=== PATIENT | male | born 1960 | race Caucasian/White ===

== ENCOUNTER 2016-11-10 16:53 | Emergency (ER) | payer BC ==
[~2016-11-10] VITALS: Ht 175.3 cm; Wt 113.0 kg
[~2016-11-10 16:53] MED LIST changes: -CEPH500C PO; -CLIN150C2 PO; -HYDR-700 PO; -MTP25TSR PO; -SERT50TA PO; -SULF-221 PO; -[UNRECOGNIZED DRUG - CODE] SQ
--- OUTSIDE RECORDS SUMMARY | 2016-11-10 16:57 | XMS REPORT | Continuity of Care Document ---
Author Author [facility] Organization [facility] Address Unknown Phone Unavailable Care Team Providers Care Tier In Name Role Phone Jorge Peña MD PP [phone] Insurance Providers Payer Name Policy Number Subscriber Name Relationship [facility] [id number] Lele Brooks 18 Self / Same As Patient Advance Directives Directive Response Recorded Date Advanced Directives No 06/29/13 2:11pm Problems Medical Problem Onset Date Perirectal abscess 08/14/12 Diabetes mellitus 08/14/12 Social History History Response Recorded Date/Time Exposure to occupational hazards Y 7:44pm Allergies, Adverse Reactions, Alerts Allergen Type Severity Reaction Last Updated Penicillins Allergy 08/14/12 Medications Medication Dose Units Route Sig Qty Days Hydrocodone Bit/Acetaminophen (Lortab 5 Mg) 1 Tab PO Q 4H PRN 15 Gentamicin Sulfate (Garamycin) 1 Drop OS Q1H W/A 10 Insulin Lispro (Humalog) 100 Unit SQ TID Insulin Glargine,Hum.rec.anlog (Lantus) 100 Unit SQ HS Loratadine 10 Mg PO DAILY Citalopram Hydrobromide (Celexa) 20 Mg PO DAILY Glimepiride (Amaryl) 2 Mg PO DAILY Metformin Hcl (Glucophage) 1000 Mg PO BID WITH MEALS Hydrocodone Bit/Acetaminophen (Hydrocodon-Acetaminophen 5-500) 1 Each PO DAILY Lisinopril (Zestril) 10 Mg PO DAILY Response Recorded Date/Time Status not known Unknown Results No Known Relevant Diagnostic Tests, Laboratory Data and/or Discharge Summary. Procedures Procedure Code Date INCISION OF RECTAL ABSCESS 34194 PERIRECTAL INCISION 48.81 08/14/12 Blood Culture 08/14/12 Anaerobic Culture 10/17/12 Encounters Encounter Location Date/Time Departed Emergency Room [facility] 06/29/13 2:10pm Discharged Inpatient [facility] 08/14/12 3:28pm
[2016-11-10 17:04] VITALS: BP 147/93
[2016-11-10] MEDS ORDERED: HYDR-700 PO (17:31)
[2016-11-10] MEDS ORDERED: CEPH500C PO (17:31)
[2016-11-15] MEDS ORDERED: SULF-221 PO (16:52)
[2016-11-16] MEDS ORDERED: [UNRECOGNIZED DRUG - CODE] SQ ×2 (09:35)
[2016-11-21] MEDS ORDERED: MTP25TSR PO (14:12)
[2016-11-21] MEDS ORDERED: CLIN150C2 PO (14:12)
[2016-11-21] MEDS ORDERED: SERT50TA PO (14:12)
[2017-01-10] MEDS ORDERED: [UNRECOGNIZED DRUG - CODE] SQ (10:24)
== END 2016-11-10 17:38 | disposition home or self-care (01) ==
LOC: ED 16:54
DX: L03.116 Cellulitis of left lower limb (principal); E11.621 Type 2 diabetes mellitus with foot ulcer; L97.429 Non-pressure chronic ulcer of left heel and midfoot with unspecified severity; Z79.4 Long term (current) use of insulin; L50.0 Allergic urticaria; R60.9 Edema, unspecified; F17.210 Nicotine dependence, cigarettes, uncomplicated
CPT/HCPCS: 99283

== ENCOUNTER → 2016-11-10 | Outpatient (CLI) | payer BC ==
[~2016-11-10] MED LIST: ASPI-894 PO; ATOR80TA PO; CEPH500C PO; CITA20TA12 PO; CLIN150C2 PO; DPAS20025 PO; GENT5DRO26 OS; GLMP2T PO; HYDR-3754 PO; HYDR-700 PO; HYDR1CAP2 PO; INSU100C7 SQ; LISI-595 PO; LORA10TA7 PO; MTP25TSR PO; NFMET1000 PO; PAMI30VI8 SQ; SERT50TA PO; SULF-221 PO; SULF-228 PO; [UNRECOGNIZED DRUG - CODE] SQ
--- NOTE | 2016-11-10 16:54 | Urgent Care T Sheet Gen (E) ---
Intake History of Present Illness Allergies: Coded Allergies: Penicillins (Unverified Allergy, 08/14/12) Home Meds Reported Medications Dipyridamole/Aspirin (Aggrenox 25mg/200mg)1 Ea Cap1 Cap PO BID 10/16/13 Atorvastatin (Lipitor)80 Mg Awnlky59 Mg PO HS 10/16/13 Citalopram Hydrobromide (Celexa)20 Mg Ugaehd36 Mg PO DAILY 10/16/13 Insulin Lispro (Humalog)100 Unit/1 Ml Tpaedxldl80 Unit SQ TIDWM 08/17/12 Insulin Glargine,Hum.rec.anlog (Lantus)100 Unit/1 Ml Efxsvqllc99 Unit SQ HS 08/17/12 Loratadine 10 Mg Wvmbdi02 Mg PO DAILY 08/14/12 Metformin HCl (Glucophage)1,000 Mg Tab1,000 Mg PO BID WITH MEALS 08/14/12 Respiratory Constitutional Symptoms: No syptoms reported All Other Systems Reviewed Remaining Systems: All other systems reviewed with negative findings Past Ubdfhbf-Xuarog-Dfzpjz Hx Patient's Social History Infectious Disease Exposure: No Recent foreign travel: No Surgeries/Hospitalizations Hospitalization/Surgery Hx: Reattachment of toe--2008 SURGICAL REMOVAL OF "ABCESS" X2 NO PROBLEMS WITH ANESTHESIA Respiratory Respiratory History: None Cardiovascular Cardiovascular History: Hypertension, Hypercholesterolemia Neuro/Muscular Neuro/Muscular History: Stroke, Headache Comment: current Dx.of possible CVA Reproductive System Sexually Transmitted Diseases: No Genitouinary Genitourinary History: None Gastrointestinal GI/Endocrine History: GERD Diabetes Diabetes: IDDM Onset: 10 years ago approximently HEENT Impaired Vision: Glasses Hearing Impaired: None Integumentary Integumentary History: Eczema, Other, see comments Comment: DIABETIC ULCER Cancer History of Cancer?: No Psychosocial Behavior Disorders: Anxiety, Depression Blood Transfusions Hx of Blood transfusions: No Reaction to blood transfusion: No Physical Exam Physical Exam General Appearance: WD/WN Departure Urgent Care Impression Impression: Primary Impression: Cellulitis Qualified Code: L03.115 - Cellulitis of right lower limb Departure Departed Disposition: To [facility] ED Condition: Stable Additional Instructions: Non compliant diabetic with history of neuropathy presents with rash which started on Sunday. Has been scratching constantly and has now caused sores along the anterior R LE. RLE is red, swollen and draining. Afebrile. Unknown HgA1c. Sent to ER for workup and possible IV antibiotics. Report called. Arriving via private vehicle. Patient and daughter understand DC instructions. End of report . DARVIN TRUJILLO Nov 10, 2016 16:54
== END ==
LOC: MHUC 16:24
PROVIDERS: ATTEND Physician Assistant
DX: L03.115 Cellulitis of right lower limb (principal)

== ENCOUNTER 2016-11-15 18:11 | Inpatient (IN) | payer BC ==
[~2016-11-15] VITALS: Ht 180.3 cm; Wt 108.5 kg
--- NOTE | 2016-11-15 18:24 | NUR ---
Pt admitted to room 316.
[2016-11-15 18:40] VITALS: BP 139/80
[2016-11-15] MEDS ORDERED: VANCOMYCIN PHARMACY PROTOCOL IV SCH ×2 (18:40)
[2016-11-15] MEDS ORDERED: ERTAPENEM 1 GM in SODIUM CHLORIDE 50 ML IV SCH (18:40)
[2016-11-15] MEDS ORDERED: VANCOMYCIN 1,000 MG in SODIUM CHLORIDE 250 ML IV ONE (18:40)
[2016-11-15] MEDS ORDERED: MAG HYDROX/AL HYDROX/SIMETH 200-200-20/5 ML (MAG-AL PLUS) 30 ML UDC PO PRN (18:45)
[2016-11-15] MEDS ORDERED: DOCUSATE SODIUM 100 MG (COLACE) CAP PO PRN (18:45)
[2016-11-15] MEDS ORDERED: PROMETHAZINE HCL INJ 12.5 MG in SODIUM CHLORIDE 25 ML IV PRN (18:45)
[2016-11-15] MEDS ORDERED: ONDANSETRON 4 MG (ZOFRAN) ORAL DISSOLVE TAB PO PRN (18:45)
[2016-11-15] MEDS ORDERED: ACETAMINOPHEN 325 MG TAB (TYLENOL) PO PRN (18:45)
[2016-11-15] MEDS ORDERED: IBUPROFEN 600 MG (MOTRIN) TAB PO PRN (18:45)
[2016-11-15] MEDS ORDERED: CALCIUM CARBONATE CHEWABLE 300 MG (TUMS) TABLET PO PRN (18:45)
[2016-11-15] MEDS ORDERED: POLYETHYLENE GLYCOL 17 GM (MIRALAX) PACKET PO PRN (18:45)
[2016-11-15] MEDS ORDERED: MAGNESIUM HYDROXIDE 80MG/ML (MILK OF MAGNESIA) 30 ML UDC PO PRN (18:45)
[2016-11-15 19:13] VITALS: BP 139/80
[2016-11-15 19:26] LABS: MEAN CORPUSCULAR HEMOGLOBIN 29.1 PG (26.0-34.0); MEAN CORPUSCULAR HGB CONC 35.4 g/dL (31.0-37.0); MEAN CORPUSCULAR VOLUME 82 FL (80-100); MEAN PLATELET VOLUME 8.3 FL (6.0-9.5); PLATELET COUNT 410 10^3uL (150-450); WHITE BLOOD COUNT 10.28 10^3uL (4.0-11.0)
[2016-11-15] MEDS ORDERED: SODIUM CHLORIDE 250 ML ONE (19:37)
[2016-11-15] MEDS ORDERED: ERTAPENEM 1 GM ONE (19:37)
[2016-11-15] MEDS ORDERED: SODIUM CHLORIDE 50 ML IV ONE (19:37)
[2016-11-15] MEDS ORDERED: VANCOMYCIN 1000 MG VIAL ONE (19:38)
[2016-11-15 19:41] LABS: BAND NEUTROPHILS % 1 % (0-6); EOSINOPHILS % 19 % (0-4); LYMPHOCYTES # 1.7 #; MONOCYTES # 0.5 #; MONOCYTES % 5 % (3-11); RBC MORPH NORMAL (NORMAL); SEGMENTED NEUTROPHILS % 58 % (51-67); TOTAL CELLS COUNTED 100
[2016-11-15 19:43] LABS: ALBUMIN 3.5 g/dL (3.4-5.0); ANION GAP 14.1 MEQ/L (3-15); CALCULATED IONIZED CALCIUM 3.6 mg/dL (3.8-4.6); TOTAL PROTEIN 7.7 g/dL (6.4-8.5)
[2016-11-15] MEDS: MEROPENEM 1 GM in SODIUM CHLORIDE 100 ML IV SCH ×2 (19:55→22:00)
[2016-11-15] MEDS ORDERED: DEXTROSE 50% 25 GM/50 ML SYRINGE IV PRN (19:55)
[2016-11-15] MEDS ORDERED: GLUCAGON EMERGENCY 1 MG/KIT IM PRN (19:55)
[2016-11-15] MEDS ORDERED: DEXTROSE ORAL GEL (GLUTOSE 40%) 15 GM TUBE PO PRN (19:55)
[2016-11-15 20:34] LABS: ERYTHROCYTE SEDIMENTATION RT* 97 mm/hr (0-12)
[2016-11-15] MEDS: NICOTINE 21 MG (NICODERM) PATCH TD SCH (20:35)
[2016-11-15] MEDS: INSULIN LISPRO 1 UNIT/0.01 ML (HUMALOG) DOSE SC SCH (21:20)
[2016-11-15] MEDS: INSULIN GLARGINE 1 UNIT/0.01ML (LANTUS) DOSE SC SCH (21:20)
[2016-11-15] MEDS: hydrOXYzine 25 MG (ATARAX) TABLET PO PRN (21:49)
--- NOTE | 2016-11-15 23:18 | NUR ---
20g IV started in R hand by Yesy Wills RN. Pt is "deathly afraid" of needles. States he cannot see them or he will "freak out". Tolerated IV start well. Admission assessment done. Dr Paez debrided pt's R foot ulcer around 2144. Saline-soaked 2x2, dry 4x4, then clare wrap applied per Dr Paez's instruction. PRN Atarax given at 2148 for c/o itching. Pt has scattered scabs all over his body. Pt states this is d/t his niece washing his clothes in the wrong detergent and he is allergic to "everything but Tide". Pt resting in bed at this time. Denies needs. Call light within reach. NS bolus infusing at this time.
[2016-11-16] VITALS (15 sets, daily range): BP systolic 126–167; BP diastolic 73–95
[2016-11-16] MEDS: INSULIN LISPRO 1 UNIT/0.01 ML (HUMALOG) DOSE SC SCH ×7 (05:38→20:41)
[2016-11-16] MEDS: MEROPENEM 1 GM in SODIUM CHLORIDE 100 ML IV SCH ×3 (05:54→23:54)
[2016-11-16] MEDS ORDERED: VANCOMYCIN 1750 MG in NS IV 475 ML IV SCH (06:00)
[2016-11-16] MEDS: hydrOXYzine 25 MG (ATARAX) TABLET PO PRN (06:01)
--- NOTE | 2016-11-16 06:02 | NUR ---
Pt rests in bed throughout the shift. NS @ 100mL/hr infusing with no difficulty. Pt denies pain. Skin warm, dry. Resprs nonlabored, even on RA. Pt denies needs at this time.
[2016-11-16 07:09] LABS: ANION GAP 11.7 MEQ/L (3-15); PHOSPHORUS 4.1 mg/dL (2.4-4.9)
[2016-11-16] MEDS ORDERED: NS FLUSH 3 ML PRN IV (07:55)
--- NOTE | 2016-11-16 08:40 | NUR ---
Awakened - "I think my BG is low" - accu check 74 - humalog held - Dr Paez notified
--- NOTE | 2016-11-16 08:50 | NUR ---
Dr Paez in room
--- NOTE | 2016-11-16 08:50 | NUR ---
Scabs scattered on arms, legs varying in size - none on back
[2016-11-16] MEDS: VANCOMYCIN COMPOUNDED BY PHARMACY IV SCH ×2 (09:00→21:00)
[2016-11-16] MEDS: NS FLUSH 3 ML DAILY IV SCH (09:00)
[2016-11-16] MEDS: SODIUM CHLORIDE IV SCH ×2 (09:08→21:22)
[2016-11-16] MEDS: VANCOMYCIN IV SCH ×2 (09:08→21:22)
[2016-11-16] MEDS ORDERED: POVIDONE IODINE 10% OINTMENT (BETADINE) 30 GM TUBE TOP ONE (09:16)
[2016-11-16] MEDS: NICOTINE 21 MG (NICODERM) PATCH TD SCH (09:20)
[2016-11-16] MEDS ORDERED: LACTATED RINGERS 1,000 ML IV SCH (09:25)
[2016-11-16] MEDS ORDERED: SODIUM CHLORIDE FLUSH 3 ML SYR IV PRN (09:25)
--- NOTE | 2016-11-16 09:35 | NUR ---
To OR per cart
[2016-11-16] MEDS ORDERED: LIDOCAINE 2% (XYLOCAINE) 20 ML VIAL INJ ONE (09:50)
[2016-11-16] MEDS ORDERED: ROPIVACAINE 1% 10 MG/ML (NAROPIN) 20 ML AMPUL ONE (09:50)
[2016-11-16] MEDS ORDERED: ALFENTANIL 1,000 MCG/2 ML AMP IV ONE (09:51)
[2016-11-16] MEDS ORDERED: MIDAZOLAM 2 MG/2 ML (VERSED) VIAL ONE (09:51)
[2016-11-16] MEDS ORDERED: LIDOCAINE/EPINEPHRINE 1% 1:100,000 (XYLOCAINE) 30 ML VIAL INJ ONE (10:43)
[2016-11-16] MEDS ORDERED: PROPOFOL 40 ML IV ONE (10:44)
--- NOTE | 2016-11-16 13:15 | NUR ---
All 12 noon Charting by Chantel Pizarro: returned to room 316 per bed @ 1240 - R foot drsg dry elevated on 2 pillows - "I'm so thristy" - ice H2O - clear liquids as per TO Dr Paez - patient education NWB R foot and elevate @ all times except when up to BSC
--- NOTE | 2016-11-16 14:58 | NUR ---
Medication reconciliation completed via external history and an interview completed by Conor Erickson pharmacy ancillary. Patient stopped taking all oral medications four months ago because he didn't understand prescriber. Only takes Novilin 70/30 which he buys OTC without a physician managing this.
--- NOTE | 2016-11-16 18:39 | NUR ---
Pt has had a good afternoon, has been up to commode x 1. Has denied pain most of the afternoon. Ate a good supper without n/v. Has had family and friends into visit this afternoon. IV site is patent with fluids infusing. R foot is elevated at all times with no weigh bearing.
[2016-11-16] MEDS: morphine INJ 2 MG/ML 1 ML SYRINGE IV PRN (19:48)
--- NOTE | 2016-11-16 19:48 | NUR ---
Able to arouse patient, but patient is drowsy. States he has right foot pain rated 7/10. Morphine 2mg IV administered. SaO2 94% at this time. Doses off easily.
[2016-11-16] MEDS: INSULIN GLARGINE 1 UNIT/0.01ML (LANTUS) DOSE SC SCH (21:21)
[2016-11-16] MEDS ORDERED: lisINopril 10 MG (PRINIVIL) TABLET PO ONE (21:25)
[2016-11-17 00:05] VITALS: BP 150/90
[2016-11-17 04:23] VITALS: BP 145/89
[2016-11-17] MEDS: MEROPENEM 1 GM in SODIUM CHLORIDE 100 ML IV SCH ×3 (05:31→22:10)
[2016-11-17] MEDS: INSULIN LISPRO 1 UNIT/0.01 ML (HUMALOG) DOSE SC SCH ×7 (06:48→21:00)
[2016-11-17] MEDS: morphine INJ 2 MG/ML 1 ML SYRINGE IV PRN ×3 (08:01→16:47)
[2016-11-17] MEDS: hydrOXYzine 25 MG (ATARAX) TABLET PO PRN (08:01)
--- NOTE | 2016-11-17 08:08 | NUR ---
Pt asleep in bed awakes to nurses voice. Iv infusing without redness or edema. Foot remains elevated. Dressing dry and intact. Pt co itching and pain rated at 5 out of 10.
--- NOTE | 2016-11-17 08:09 | NUR ---
Medication given for pain and itching. Pt asks for a Dr. Meléndez. Nurse offers a diet Dr. Meléndez and advises on diabetic diet. Pt declines diet Dr. Meléndez.
[2016-11-17 08:26] VITALS: BP 152/80
[2016-11-17] MEDS: VANCOMYCIN COMPOUNDED BY PHARMACY IV SCH ×2 (09:00→22:08)
[2016-11-17] MEDS ORDERED: lisINopril 10 MG (PRINIVIL) TABLET PO SCH (09:00)
--- NOTE | 2016-11-17 09:00 | NUR ---
Pt requests insulin be given while he wears a towel on his face, so he can not see the needle. Pt claims that he gives himself insulin with a towel on his head. He states, "I will walk out of here if I see a needle."
[2016-11-17] MEDS: NICOTINE 21 MG (NICODERM) PATCH TD SCH (09:11)
[2016-11-17] MEDS: VANCOMYCIN IV SCH ×3 (09:11→22:09)
[2016-11-17] MEDS: SODIUM CHLORIDE IV SCH ×3 (09:11→22:09)
[2016-11-17] MEDS: NS FLUSH 3 ML DAILY IV SCH (09:11)
[2016-11-17] MEDS: TRIAMCINOLONE 0.1% TOP SCH ×3 (09:39→18:01)
--- NOTE | 2016-11-17 12:30 | NUR ---
FSBS 66. Pt eating lunch. Dr. Villalba aware.
--- NOTE | 2016-11-17 13:30 | NUR ---
FSBS 58. Pt given a Dr. Meléndez.
--- NOTE | 2016-11-17 14:00 | NUR ---
Pt has asked several times for Lexy at Dr. Steiner's office to come change his medications. Nurse called Dr. Steiner's office for a current med list. Mandaree said he has been dismissed from their care, but will send the most recent list they have.
--- NOTE | 2016-11-17 14:10 | NUR ---
FSBS 84. Dr. Villalba notified. Noon insulin held.
[2016-11-17] MEDS: NS FLUSH 10 ML PRN IV ×2 (14:51→16:46)
--- NOTE | 2016-11-17 15:15 | NUR ---
MEDICATION QUESTION: Patient had questions concerning metformin and antidepressant medication. Metformin caused him upset stomach when he was taking the medication; verified patient was taking the medication with food. We discussed possibly using Metformin ER upon dismissal if deemed necessary per provider. Patient also wanted a medication for depression that was different from previous medication, sertraline. I told patient I would relay his concerns to Dr. Villalba; this was done. This education was conduct by Arnaldo Erickson PharmD Candidate 2016.
--- NOTE | 2016-11-17 15:40 | NUR ---
Dr. Villalba into see patient.
[2016-11-17] MEDS ORDERED: CITALOPRAM 20 MG (CELEXA) TABLET PO ONE (16:00)
[2016-11-17 17:10] VITALS: BP 130/68
--- NOTE | 2016-11-17 19:00 | NUR ---
Pt report given to Michelle MILES. Pt remains with foot elevated on 3 pillows. Dressing dry and intact. SL remains without redness or edema. Breathing equal and unlabored on room air.
--- NOTE | 2016-11-17 19:40 | NUR ---
Pt is resting in bed watching tv, alert and oriented x 4, resp are even and nonlabored, LCTAB, HRRR, BS are active x 4 quadrants. Pt has right foot elevated on 2 pillows, dressing to right foot is clean, dry, and intact. Currently rates pain 4 on 1-10 scale, denies need for pain medication at this time. Does have visitors at this time, will continue to monitor.
[2016-11-17] MEDS: INSULIN GLARGINE 1 UNIT/0.01ML (LANTUS) DOSE SC SCH (21:00)
[2016-11-18 00:07] VITALS: BP 127/69
--- NOTE | 2016-11-18 05:57 | NUR ---
Pt is resting in bed asleep, has kept foot elevated during this shift. Has not needed any pain medication during this shift. Call light is in reach, will continue to monitor.
[2016-11-18] MEDS: MEROPENEM 1 GM in SODIUM CHLORIDE 100 ML IV SCH (06:12)
[2016-11-18] MEDS: INSULIN LISPRO 1 UNIT/0.01 ML (HUMALOG) DOSE SC SCH ×7 (07:30→21:00)
[2016-11-18 07:51] VITALS: BP 113/62
[2016-11-18] MEDS: CITALOPRAM 20 MG (CELEXA) TABLET PO SCH (08:34)
[2016-11-18] MEDS ORDERED: NICOTINE 21 MG (NICODERM) PATCH TD SCH (09:00)
[2016-11-18] MEDS: VANCOMYCIN COMPOUNDED BY PHARMACY IV SCH (09:11)
[2016-11-18] MEDS: NS FLUSH 3 ML DAILY IV SCH (09:32)
[2016-11-18] MEDS: TRIAMCINOLONE 0.1% TOP SCH ×3 (09:32→18:43)
[2016-11-18] MEDS: SODIUM CHLORIDE IV SCH (09:40)
[2016-11-18] MEDS: VANCOMYCIN IV SCH (09:40)
[2016-11-18] MEDS ORDERED: NICOTINE 7 MG (NICODERM) PATCH TD PRN (10:10)
[2016-11-18] MEDS ORDERED: ACETAMINOPHEN 325 MG TAB (TYLENOL) PO PRN (10:15)
--- NOTE | 2016-11-18 10:47 | NUR ---
Vancomycin Dosing: Pharmacy Managed S: Diabetic foot ulcer with evidence of osteomyelitis O: 56 yo male s/p debridement and amputation of fifth metatarsal 11-16-16 on day 4 of vancomycin and meropenem empirically. Blood cx negative to date, wound cx pending. SCr 0.78 mg/dL, CrCl > 125 mL/min, ESR 97, vanco trough 13 mcg/mL. A/P: Patient received one dose of vancomycin 1 gram (11-15-16 evening) then vancomycin 1750 mg IV q12h thereafter. Recommend continuing current dose to maintain therapeutic level of ~15 mcg/mL. Draw next trough prior to am dose on 11-22-16.
[2016-11-18] MEDS ORDERED: NICOTINE POLACRILEX 2 MG (NICORETTE) GUM BC PRN (11:35)
--- NOTE | 2016-11-18 13:02 | NUR ---
Pt states he "is nauseous from the medication you gave me earlier". States it is from the celexa. Encouraged pt that there are other reasons he may be nauseous. PRN Zofran given at this time.
[2016-11-18 15:26] VITALS: BP 124/76
--- NOTE | 2016-11-18 15:27 | NUR ---
PRN Ultram given at this time for c/o R foot pain rated 4/10. Denies other needs.
--- NOTE | 2016-11-18 18:24 | NUR ---
Pt rests in bed this shift. Sits up on edge of bed for meals. SL intact. Drsg to R foot intact. Pt has expressed feeling very depressed today. Dr Paez gave staff the okay to take pt on supervised visits outside in a w/c with foot propped up. Pt had waited on a friend to come up all day and did not end up going outside because of this. Opened pt's window in room. Pt denies other needs.
[2016-11-18] MEDS: INSULIN GLARGINE 1 UNIT/0.01ML (LANTUS) DOSE SC SCH (21:41)
[2016-11-19 00:15] VITALS: BP 134/75
--- NOTE | 2016-11-19 04:39 | NUR ---
Pt is resting in bed watching tv, alert and oriented x 4, resp are even and nonlabored, LCTAB, HRRR, BS are active x 4 quadrants. Pt has right foot elevated on 2 pillows, dressing to right foot is clean, dry, and intact. Currently rates pain 4 on 1-10 scale, denies need for pain medication at this time. Call light is in reach, will continue to monitor.
[2016-11-19 06:22] LABS: BASOPHILS % (AUTO) 1 % (0-2); EOSINOPHILS # (AUTO) 1.2 10^3uL; EOSINOPHILS % (AUTO) 12 % (0-4); LYMPHOCYTES # (AUTO) 1.7 X10^3; MEAN CORPUSCULAR HEMOGLOBIN 28.6 PG (26.0-34.0); MEAN CORPUSCULAR HGB CONC 34.9 g/dL (31.0-37.0); MEAN CORPUSCULAR VOLUME 82 FL (80-100); MEAN PLATELET VOLUME 8.1 FL (6.0-9.5); MONOCYTES # (AUTO) 0.8 X10^3; MONOCYTES % (AUTO) 9 % (3-11); NEUTROPHILS # (AUTO) 5.8 X10^3; NEUTROPHILS % (AUTO) 61 % (51-67); PLATELET COUNT 370 10^3uL (150-450)
[2016-11-19 06:50] LABS: ANION GAP 9.5 MEQ/L (3-15)
[2016-11-19] MEDS: INSULIN LISPRO 1 UNIT/0.01 ML (HUMALOG) DOSE SC SCH ×8 (07:14→20:53)
[2016-11-19 07:55] VITALS: BP 128/70
[2016-11-19] MEDS: CITALOPRAM 20 MG (CELEXA) TABLET PO SCH (08:29)
[2016-11-19] MEDS: NICOTINE 21 MG (NICODERM) PATCH TD SCH (08:32)
[2016-11-19] MEDS: TRIAMCINOLONE 0.1% TOP SCH ×2 (08:33→13:00)
[2016-11-19] MEDS: NS FLUSH 3 ML DAILY IV SCH (09:35)
[2016-11-19] MEDS ORDERED: TRIAMCINOLONE 0.1% TOP PRN ×2 (13:15→18:30)
--- NOTE | 2016-11-19 13:35 | NUR ---
PRN Ultram and nicotine gum given at this time per pt request. Denies other needs.
[2016-11-19 15:22] VITALS: BP 116/60
[2016-11-19] MEDS ORDERED: TRIAMCINOLONE 0.1% TOP SCH (18:00)
--- NOTE | 2016-11-19 18:12 | NUR ---
Pt adamant that he wanted to see Dr Paez today. States he does not need anything, he was just told by Jag that Philippe would see him today. Jag visited with patient again. Informed pt that Philippe would be in to see him in the morning. SL intact. Pt has kept foot elevated today. Denies needs.
[2016-11-19] MEDS ORDERED: SERTRALINE 50 MG (ZOLOFT) TABLET ONE (19:56)
[2016-11-19] MEDS: SERTRALINE 50 MG (ZOLOFT) TABLET PO SCH (20:15)
[2016-11-19] MEDS: INSULIN GLARGINE 1 UNIT/0.01ML (LANTUS) DOSE SC SCH (20:53)
[2016-11-19 23:48] VITALS: BP 150/94
--- NOTE | 2016-11-20 07:45 | NUR ---
Patient awake in bed upon shift assessment. alert and oriented X3. Denies pain at this but states "my depression is too bad to feel pain". Nurse inquires about depression and provided positive reassurance. Dr. Paez here to see patient. Removes and replaces right foot dressing. Updated on plan of care for shift. Call light in reach.
[2016-11-20 07:48] VITALS: BP 123/73
[2016-11-20] MEDS: NICOTINE 21 MG (NICODERM) PATCH TD SCH (08:40)
[2016-11-20] MEDS: INSULIN LISPRO 1 UNIT/0.01 ML (HUMALOG) DOSE SC SCH ×6 (08:40→21:09)
[2016-11-20] MEDS: NS FLUSH 3 ML DAILY IV SCH (08:40)
--- NOTE | 2016-11-20 09:00 | NUR ---
Patient refuses AM metoprolol and states "that just makes me sick". Requires cloth to be over eyes for insulin administration. Will continue to monitor.
[2016-11-20] MEDS: NS FLUSH 10 ML PRN IV ×2 (09:44→20:56)
[2016-11-20] MEDS: MEROPENEM 1 GM in SODIUM CHLORIDE 100 ML IV SCH ×3 (09:44→22:31)
--- NOTE | 2016-11-20 10:18 | NUR ---
NUTRITION ASSESSMENT Level 1 Patient: Lele Vasquez Age/Sex: 56/M Date Screened: 11-20-16 Weight: 240.4#/109.3 kg Height: 71 inches Primary Diagnosis: right diabetic foot ulcer w/ toe amputation Diet Order: medium diabetic Relevant labs: glucose 120 Food allergies: N Nutrition Assessment Criteria Age over 80: N Body Mass Index (BMI) under 19: N Admission Screening Indicates Risk? 3 points Moderate/High Risk Diagnosis: 6 points TPN or PPN: N NPO or clear liquid diet: N Serum Glucose <70 or >180: N Hgb A1c >6.7: N/A Total: 9 points Risk Screen: __ Patient at low nutritional risk based on available data; reevaluate in 5-7 days __ Patient at moderate nutritional risk based on available data; reevaluate in 3-5 days _X_ Patient at high nutritional risk; complete Nutrition Assessment within 48 hours of admission.
--- NOTE | 2016-11-20 12:22 | NUR ---
MULTIDISCIPLINARY MTG/DR. LOVELACE: Concerns Pt. doesn't understand or isn't concerned about his diagnosis and non-compliance. Pt. will need to stay off his feet for three weeks and have his foot elevated. Pt. doesn't have a good skilled benefit. Pt. could possibly go home with home health and OT for energy conservation. Dr. Lovelace to discuss Pt. options with him. Dietary consult has been ordered.
--- NOTE | 2016-11-20 12:52 | NUR ---
NUTRITION ASSESSMENT Level II Patient: Lele Vasquez Age/Sex: 56/M Date Assessed: 11-20-16 ASSESSMENT Pertinent History: Patient admitted with diabetic foot ulcer and had toe amputation 11-16-16. PMHx includes uncontrolled diabetes, peripheral neuropathy, depression/anxiety, tobacco abuse, hx alcohol abuse, hx diabetic foot ulcer and hx medication nonadherence. He reports not taking any oral meds x4 months, though he has been taking insulin. He lives with a friend and reports stable weight. Meds/Nutrition: Humalog, Lantus Weight: 240.4#/109.3 kg Height: 71 inches Body Mass Index (BMI): 33.6 [place] Body Weight : 172#/78.1 kg % IBW: 139% GASTROINTESTINAL Appetite: good, eating 50-100% with average 87% the past 2 days Diet Order: medium diabetic Unintentional loss of >10 lbs. in 3 months: N Difficult to chew/swallow: N Diabetes: Yes Relevant Labs: glucose 120 Calculations for Nutritional Assessment Estimated calorie needs: 22-25 kcals/kg = 2,400-2,725 kcals (minus 500-1,000 for weight loss) Estimated protein needs: 1.3-1.5 g/kg ABW = 111-127 g./day DIAGNOSIS 1. Nutrition Diagnosis: Increased nutrient needs related to wound healing as evidenced by 5th metatarsal amputation POD #4. 2. Nutrition Diagnosis: Undesirable food choices related to denial as evidenced by patient with long- standing diabetic foot ulcer s/p amputation and continues to eat candy bars and regular Dr. Meléndez. NUTRITIONAL INTERVENTION Goal: Patient will receive adequate nutrition to meet his needs. Plan: Visited with pt. re: diabetic diet. Pt. stated that what he eats and drinks "has no effect on his blood sugar" and said his sugar "always runs between 100-155 at home." He expressed frustration that he feels like he has to repeat himself to everyone who comes in his room; he feels like no one is listening to him. He requested regular soda and said he "doesn't drink diet stuff, it'll kill you." I explained that I was very uncomfortable giving him regular pop because of what it does to peoples' blood sugar and asked if I could compromise and give him regular pop if his sugar was <100. If it was >100, I asked if I could send him unsweetened iced tea, and pt. said yes. He also requested a toasted turkey sandwich on wheat bread for lunch, which the dietary staff provided him. Notified physician that pt. was not willing or able to discuss specific diet interventions at this time. MONITORING & EVALUATION _X_ Monitor patients menu selections _X_ Monitor patients food intake per nursing notes __ Monitor NPO/clear liquid days _X_ Monitor lab values __ Monitor I&O __ Other
[2016-11-20 16:04] VITALS: BP 130/81
--- NOTE | 2016-11-20 18:40 | NUR ---
Patient compliant with keeping foot elevated throughout day. Requires PRN Ultram on one occasion. Compliant with non-weight bearing status. Dressing clean, dry, and intact. Continues to require positive reassurance with insulin administration. Call light in reach.
--- NOTE | 2016-11-20 19:45 | NUR ---
Patient sitting at edge of bed with head in hands stating, "I can't take it any more." Expresses desire to talk to provider and to be dismissed to home. Staff nurse explains that not everything is set up for him yet at home in order for him to be successful. notified of patient's desire to visit.
[2016-11-20] MEDS: SERTRALINE 50 MG (ZOLOFT) TABLET PO SCH (20:48)
--- NOTE | 2016-11-20 21:00 | NUR ---
Patient now seems understanding of staff schedules and has a more pleasant attitude. Pain meds given with HS meds for right foot pain.
[2016-11-20] MEDS: INSULIN GLARGINE 1 UNIT/0.01ML (LANTUS) DOSE SC SCH (21:09)
--- NOTE | 2016-11-20 23:00 | NUR ---
IV site leaking. Assessed. Flushes with difficulty and shows slight infiltration. Site DC'd. New site establlished in Left forearm with 20 G x two attempts.
[2016-11-21 00:19] VITALS: BP 168/99
[2016-11-21] MEDS: MEROPENEM 1 GM in SODIUM CHLORIDE 100 ML IV SCH ×2 (05:33→13:38)
[2016-11-21] MEDS: NS FLUSH 10 ML PRN IV (05:33)
--- NOTE | 2016-11-21 05:45 | NUR ---
Patient pleasant this morning. Denies needs.
[2016-11-21] MEDS: INSULIN LISPRO 1 UNIT/0.01 ML (HUMALOG) DOSE SC SCH ×4 (05:49→13:38)
[2016-11-21 07:20] VITALS: BP 115/80
[2016-11-21] MEDS: NICOTINE 21 MG (NICODERM) PATCH TD SCH (09:00)
[2016-11-21] MEDS ORDERED: SODIUM CHLORIDE 50 ML IV ONE (09:11)
[2016-11-21] MEDS: NS FLUSH 3 ML DAILY IV SCH (09:17)
--- NOTE | 2016-11-21 11:09 | NUR ---
Redressed R foot wound per Dr Paez's instruction. Walked pt and caregiver through drsg change in prep for DC. Xeroform, 4x4s, Vaughn wrap. Pt denies need for pain medication. Pt very eager to leave. Informed pt we will try to get him discharged as soon as we can. Denies needs.
--- NOTE | 2016-11-21 12:48 | NUR ---
Pt very anxious to leave. States his friend and roommate are "tearing up" his house and wants to leave now. Deejay escalona.
--- NOTE | 2016-11-21 16:42 | NUR ---
Discharge instructions reviewed with patient and caregiver, both demonstrate understanding. SL removed with catheter tip intact. Spouse picked up crutches and w/c. Pt dismissed at this time via w/c accompanied by Chantel Orellana CNA and caregiver.
== END 2016-11-21 16:43 | disposition home or self-care (01) | DRG 617 ==
LOC: EDUNIT# 18:11 → ED 18:12 → EDSTATUS 18:25 → MED/SURG 18:30 → UNDOADMIN 18:30 → MED/SURG 18:42
PROVIDERS: ADMIT Internal Medicine; ATTEND Internal Medicine
PROC: 0JDQ0ZZ Extraction of Right Foot Subcutaneous Tissue and Fascia, Open Approach (ICD-10-PCS; principal; 2016-11-15)
PROC: 0Y6M0ZF Detachment at Right Foot, Partial 5th Ray, Open Approach (ICD-10-PCS; 2016-11-16)
DX: E11.69 Type 2 diabetes mellitus with other specified complication (principal); M86.8X7 Other osteomyelitis, ankle and foot; E11.621 Type 2 diabetes mellitus with foot ulcer; L97.514 Non-pressure chronic ulcer of other part of right foot with necrosis of bone; E11.65 Type 2 diabetes mellitus with hyperglycemia; E11.42 Type 2 diabetes mellitus with diabetic polyneuropathy; I10 Essential (primary) hypertension; F32.9 Major depressive disorder, single episode, unspecified; F41.9 Anxiety disorder, unspecified; F10.10 Alcohol abuse, uncomplicated; F17.200 Nicotine dependence, unspecified, uncomplicated; Z91.14 Patient's other noncompliance with medication regimen; Z79.4 Long term (current) use of insulin
CPT/HCPCS: 36415; 71020; 80048; 80053; 80069; 80202; 83036; 85025; 85610; 85652; 85730; 86140; 87040; 87070; 87075; 87077; 87147; 87186; 93005

== ENCOUNTER → 2016-11-15 | Outpatient (CLI) | payer BC ==
[~2016-11-15] MED LIST changes: +CEPH500C PO; +CLIN150C2 PO; +HYDR-700 PO; +MTP25TSR PO; +SERT50TA PO; +SULF-221 PO; +[UNRECOGNIZED DRUG - CODE] SQ
[2016-11-15 17:54] VITALS: BP 152/91
--- NOTE | 2016-11-15 17:54 | Urgent Care T Sheet Gen (E) ---
Intake General Temperature (Fahrenheit): 97.5 Pulse: 110 Blood Pressure Systolic: 152 Blood Pressure Diastolic: 91 Respirations: 20 SPO2: 98 Description of Symptoms Patient presents with a complicated medical picture. Patient is a non- compliant insulin dependent diabetic. He presented to on Sunday complaining of an itchy rash and possible infection to the R tidwell. At the time, the anterior R lower leg was red and swollen therefore he wasn't seen at and was immediately sent to the ER for workup/treatment. Patient states he was in the ER for 30 minutes. No blood was drawn. States he was started on a med for the itch and Keflex for infection. Presents today for a recheck. States he can't feel the plantar aspect of his feet due to neuropathy however he states the foot smells terrible and has been draining. Patient would like it re- evaluated. No fever that he is aware of. 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 History of Present Illness Allergies: Coded Allergies: Penicillins (Unverified Allergy, Unknown, 11/10/16) Home Meds Active Scripts Sulfamethoxazole/Trimethoprim (Sulfamethoxazole/Trimethoprim DS 800mg/160mg)1 Each Tablet1 Each PO BID #20 TAB Prov:DARVIN TRUJILLO 11/15/16 Hydroxyzine HCl 25 Mg Enacsr74 Mg PO Q6H PRN ITCHING #30 TAB Ref 3 Prov:SOLOMON,MARIKA Chantel PHILLIP 11/10/16 Cephalexin 500 Mg Toyfzko093 Mg PO QID Infection #40 CAP Ref 0 Prov:MARIKA SOLOMON DO 11/10/16 Reported Medications Insulin Glargine,Hum.rec.anlog (Lantus)100 Unit/1 Ml Qsdnttuuc59 Unit SQ HS 08/17/12 Discontinued Reported Medications Dipyridamole/Aspirin (Aggrenox 25mg/200mg)1 Ea Cap1 Cap PO BID 10/16/13 Atorvastatin (Lipitor)80 Mg Kjqjot47 Mg PO HS 10/16/13 Citalopram Hydrobromide (Celexa)20 Mg Rxofpf57 Mg PO DAILY 10/16/13 Insulin Lispro (Humalog)100 Unit/1 Ml Mavgidosg44 Unit SQ TIDWM 08/17/12 Loratadine 10 Mg Qwthqk06 Mg PO DAILY 10/17/12 Metformin HCl (Glucophage)1,000 Mg Tab1,000 Mg PO BID WITH MEALS 08/14/12 Respiratory Constitutional Symptoms: No syptoms reportedNo Fever Skin: Other (drainage) Neurological: Paresthesia All Other Systems Reviewed Remaining Systems: All other systems reviewed with negative findings Past Aqkkcav-Kocgsf-Ygablq Hx Patient's Social History Alcohol Use: Regularly Uses Smoking Status: Current every day smoker Infectious Disease Exposure: No Recent foreign travel: No Surgeries/Hospitalizations Hospitalization/Surgery Hx: Reattachment of toe--2008 SURGICAL REMOVAL OF "ABCESS" X2 NO PROBLEMS WITH ANESTHESIA Respiratory Respiratory History: None Cardiovascular Cardiovascular History: Hypertension, Hypercholesterolemia Neuro/Muscular Neuro/Muscular History: Stroke, Headache Comment: current Dx.of possible CVA Reproductive System Sexually Transmitted Diseases: No Genitouinary Genitourinary History: None Gastrointestinal GI/Endocrine History: GERD Diabetes Diabetes: IDDM Onset: 10 years ago approximently HEENT Impaired Vision: Glasses Hearing Impaired: None Integumentary Integumentary History: Eczema, Pruritus Comment: DIABETIC ULCER Cancer History of Cancer?: No Psychosocial Behavior Disorders: Anxiety, Depression Blood Transfusions Hx of Blood transfusions: No Reaction to blood transfusion: No Physical Exam Physical Exam General Appearance: WD/WN No apparent distress Skin Exam: Other (patient's R lower leg is no longer swollen and red like it was on Sunday (when I last examined the patient). there is a rather large diabetic ulcer along the plantar aspect of the R foot over the 5th met head, approx the size of a silver dollar or larger.) Neurologic/Psychiatric Exam: Sensory deficit (decreased sensation along the plantar aspect of R foot.) Departure Urgent Care Impression Impression: Primary Impression: Diabetic foot ulcer Qualified Code: E10.621 - Type 1 diabetes mellitus with foot ulcer Departure Disposition: ADMITTED INPATIENT Condition: Stable Additional Instructions: While the patient was at Urgent Care, I called the surgery clinic for guidance. Dr Paez had left for the day however his nurse gave me his cell number. While waiting for Dr Paez's return call, I sent the patient home. In the mean time, I had switched him from Keflex to Bactrim. I also gave him a note excusing him from work for the next week. Approx 20 minutes later, Dr Paez called. After discussing the patient with him, he suggested the patient be treated as an inpatient. I then called the hospitalist service who suggested having the patient directly admitted under their care Patient was called and he is arriving to the hospital via private vehicle. Scripts Sulfamethoxazole/Trimethoprim (Sulfamethoxazole/Trimethoprim DS 800mg/160mg)1 Each Tablet1 Each PO BID #20 TAB Prov:DARVIN TRUJILLO 11/15/16 End of report . DARVIN TRUJILLO Nov 15, 2016 16:52
== END ==
LOC: MHUC 15:53
PROVIDERS: ATTEND Physician Assistant
DX: E10.621 Type 1 diabetes mellitus with foot ulcer (principal)
CPT/HCPCS: 99213

== ENCOUNTER → 2017-01-10 | Emergency (ER) | payer BC ==
[~2017-01-10] VITALS: Ht 180.3 cm; Wt 111.0 kg
[~2017-01-10] MED LIST changes: -ASPI-894 PO; -ATOR80TA PO; -CEPH500C PO; -CITA20TA12 PO; -CLIN150C2 PO; -DPAS20025 PO; -GENT5DRO26 OS; -GLMP2T PO; -HYDR-3754 PO; -HYDR-700 PO; -HYDR1CAP2 PO; -INSU100C7 SQ; +INSULIN NPH/REG 70/30 1 UNIT/0.01 ML (HUMULIN 70/30) DOSE SC ONE; -LISI-595 PO; -LORA10TA7 PO; -MTP25TSR PO; -NFMET1000 PO; -PAMI30VI8 SQ; -SERT50TA PO; -SULF-221 PO; -SULF-228 PO; -[UNRECOGNIZED DRUG - CODE] SQ
[2017-01-10 10:24] VITALS: BP 135/68
== END | disposition home or self-care (01) ==
LOC: EDUNIT# 09:45 → ED 09:47
DX: E11.65 Type 2 diabetes mellitus with hyperglycemia (principal); Z79.4 Long term (current) use of insulin
CPT/HCPCS: 82803; 99283; J1815

== ENCOUNTER 2017-02-12 12:30 | Emergency (ER) | payer BC ==
[~2017-02-12] VITALS: Ht 180.3 cm; Wt 112.0 kg
[~2017-02-12 12:30] MED LIST changes: +ASPI-894 PO; +ATOR80TA PO; +CEPH500C PO; +CITA20TA12 PO; +CLIN150C2 PO; +DPAS20025 PO; +GENT5DRO26 OS; +GLMP2T PO; +HYDR-3754 PO; +HYDR-700 PO; +HYDR1CAP2 PO; +INSU100C7 SQ; -INSULIN NPH/REG 70/30 1 UNIT/0.01 ML (HUMULIN 70/30) DOSE SC ONE; +LISI-595 PO; +LORA10TA7 PO; +MTP25TSR PO; +NFMET1000 PO; +PAMI30VI8 SQ; +SERT50TA PO; +SULF-221 PO; +SULF-228 PO; +[UNRECOGNIZED DRUG - CODE] SQ
[2017-02-12] MEDS ORDERED: CPR500T PO (13:13)
[2017-02-12 13:20] VITALS: BP 147/89
== END 2017-02-12 13:21 | disposition home or self-care (01) ==
LOC: ED 12:31
DX: E11.621 Type 2 diabetes mellitus with foot ulcer (principal); E11.40 Type 2 diabetes mellitus with diabetic neuropathy, unspecified; Z79.4 Long term (current) use of insulin
CPT/HCPCS: 99283

== ENCOUNTER 2017-02-23 10:00 | Outpatient (RCR) | payer BC, OTHER ==
--- NOTE | 2016-12-21 14:40 | PT/OT/ST INITIAL EVALUATION ---
[facility], [facility]. PHYSICAL/OCCUPATIONAL THERAPY [address] [place] [id number] PLAN OF CARE/ASSESSMENT FOR OUTPATIENT REHABILITATION (Complete for Initial Claims Only) 1. PATIENT'S NAME Lele Vasquez 2. ACC. No [id number] 3. 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 SECONDARY DX Non healing surgical wound 5. ONSET DATE November 11, 2016 6. REFERRAL DATE 7. SOC. DATE/TIME December 13, 2016 12:53 p.m. 8. PRIOR LEVEL OF FUNCTION; PERTINENT HISTORY (Prior therapy results, reason for referral.) S: Prior to therapy, the patient did consent to today's evaluation and treatment. The patient is a 56-year-old male referred to physical therapy by Dr. 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 The patient does rate his overall and general health as fair. The patient states, in October 2016, when he stepped out the shower he and his bath aide noticed a foul stench coming from him following his shower. They then began exploring to see where this could be coming from and found a significant wound on the bottom of his right foot. The patient states they then found a nail in his flip flop that he was repeatedly stepping on. The patient is diabetic and has no protective sensation in his feet. The patient typically works in the oil field, being an drill rig operator helper requiring significant amounts of time on his feet and requiring steel-toed boots and working at least 12-hour shifts, sometimes up to 2 weeks without a break. As the patient states, this is also a high heat condition frequently sweating and getting wet socks and clothing due to this putting him at increased risk for further breakdown. The patient is off work due to this. The patient does have a leadership program associate at home who is there with him 21/05 who helps him set up his pills, give himself shots, gets him to doctors' appointments and also has been changing the bandages since his amputation on the right foot. The patient states he has diabetes melitis since 2005. He is insulin dependent, and typically his blood sugars run anywhere from 160 to 45. He says he tries to get blood sugars checked twice per day. The patient has no primary physician at this time. Prior function: Includes the patient being unlimited in all activities including full work duties. . Current function: Currently the patient is unable to work due to this amputation and a non-healing wound. He has difficulty with transfers and is using crutches. Therapy History: The patient has had no previous physical therapy for this condition. Obstacles to delivery of care do include impulsivity and poor education of self health management. Past medical history: Once again includes hypertension, a CVA in 2011 or 2012 where he lost his speech and also had right-sided weakness, insulin dependent diabetes mellitus type 2, depression, diabetic peripheral neuropathy, he is a smoker. Medication list: Incudes him taking 36 units of insulin at night and 45 units in the morning. Antibiotics for this condition, blood pressure medicine and Zoloft. The patient's goal for physical therapy is to heal his foot and to get back to work. 9. INITIAL ASSESSMENT/SAFETY PRECAUTIONS/MEDICAL COMPLICATIONS (Level of function at start of care. Be specific, use objective measures, list problems.) O: APPEARANCE AND OBSERVATION: The patient present with bilateral crutches- using a ulv-[id number] pattern on the right lower extremity with poor safety. The patient presents with scratches and abrasions throughout his entire body. The patient states this is due to being itchy and scratching frequently. The patient does present at physical therapy without shoes today, is impulsive, and has several instances of nearly falling when trying to transfer. The patient's wound is located at the right lateral foot with 100% black eschar and dimensions of 6 cm x 2.8 cm x 1.0 cm. There is a tunnel of depth 1 cm at 12:00. Drainage is serosanguineous in nature and the wound has no odor. The patient does have callous surrounding his wound and present throughout the plantar surface of the right foot. There is a small "crack" located at the great toe, plantar surface of 0.1cm x 0.3cm that is non-draining caused by dry skin. There is 3+ pitting edema present throughout the lower extremity with erythema present. TODAY'S TREATMENT: Following the initial evaluation, debridement was performed to black eschar and yellow slough. Prior to debridement, the patient had 100% black eschar in the wound; following today's debridement with forceps and a 15 blade scalpel, the patient had 10% pale granulation and 90% black eschar. Education was provided to patient on importance of healthy diet, blood sugar control, daily foot inspections, compression on right lower extremity for wound healing, moisturization of skin and smoking inhibiting wound healing. 10. 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 PROGNOSIS: This patient has a fair prognosis with regular therapy attendance and compliance with wearing dressings and compression. This patient is expected to benefit from physical therapy services in order to have increased wound bed quality, decreased wound size, decreased infection risk for return to full skin integrity. GOALS: 1. The patient to be compliant with wearing wound dressings after each visit. 2. The patient with a wound bed to consist of 100% pink granulation in 4 weeks to reflect healthy tissue. 3. The patient with a 50% decrease in wound dimensions to reflect wound healing in 7 weeks. 4. The patient with the wound 100% healed in 10 weeks to have decreased infection risk and self-manage this condition. The diagnosis, prognosis, treatment plan, risks and expected outcome were discussed with the patient and the patient did agree to today's established plan of care. P: Plan to treat the patient 3 times per week for 10 weeks in order to address status post amputation of the right foot 5th ray, with a nonhealing surgical wound. Therapeutic treatments to include comprehensive wound care including debridement with sharps, and patient education regarding care of diabetic feet. 11. PHYSICIAN SIGNATURE ? ON FILE OR ENTER HERE: 12. DATE: I certify the need for these services furnished under this plan of care and if for partial hospitalization. 13. CERTIFICATION FROM THROUGH
[~2017-02-23 10:00] MED LIST changes: +CPR500T PO
== END 2017-03-13 | disposition home or self-care (01) ==
LOC: PT 10:00
PROVIDERS: ATTEND Surgery
DX: L97.519 Non-pressure chronic ulcer of other part of right foot with unspecified severity (principal); Z89.421 Acquired absence of other right toe(s)

== ENCOUNTER 2017-03-23 09:00 | Outpatient (RCR) | payer OTHER ==
--- NOTE | 2017-03-13 11:17 | PT/OT/ST INITIAL EVALUATION ---
Department of Health and Human Services Form Approved Health Care Financing Administration OMB No. [id number] PLAN OF CARE/ASSESSMENT FOR OUTPATIENT REHABILITATION (Complete for Initial Claims Only) 1. PATIENT'S NAME Lele Vasquez 2. ACC # [id number] 3. HICN NA 4. PROVIDER NO. NA 5. TYPE: PT 6. PRIOR HOSPITALIZATION NA 7. PRIMARY DX Bilateral foot wounds 8. SECONDARY DX NA 9. ONSET DATE Approximately 3 months ago 10. REFERRAL DATE NA 11. SOC. DATE 02/21/17 12. TIME OF EVAL 9:00 AM 12. REFERRING PHYSICIAN Que Ness MD 13. CHARGES/UNITS NA 14. G CODES NA 15. PRIOR LEVEL OF FUNCTION; PERTINENT HISTORY (Prior therapy results, reason for referral.) S: Prior to therapy the patient consented to today's evaluation and treatment. The patient is a 56-year-old male referred to physical therapy by Dr. Que Ness to address bilateral foot wounds. Personal health rating: The patient does rate his overall health as good to fair. Mechanism of injury: The patient states that at end of 2015 he had stepped on a nail with his right foot and was unaware of this due to diabetic peripheral neuropathy. The patient noticed after showering a chunk of skin fell off his foot and it had an intense odor. The then went to the doctor due to this. It was deemed that the patient had a significant infection in his foot requiring the 5th toe on the right foot to be amputated. This wound is healing and he has been treated with physical therapy for this over the last several months. However, approximately 1 month ago the patient was walking in his yard with croc shoes on when a nail went into his left foot causing breakdown on that foot as well. He also developed general breakdown at the first [facility] head area for unknown reasons, per patient report. This wound has not been treated and was first evaluated on this date due to the patient now being under the care of a new primary care physician. Both wounds have been reevaluated on this date. Function is not affected by this wound care. Therapy History: Includes PT for the right lower extremity wound care with good results. Obstacles to delivery of care: Includes a history of decreased compliance by the patient and diabetes, as well as peripheral neuropathy. Pain level: The patient denies reports of pain with this condition. Past medical history: Includes diabetes mellitus with sugars running in the 150s. None others are reported by the patient. Current medications: Includes metformin and insulin. Patient's Goal: The patient's goal for physical therapy is to heal up his wound so he can get back to work. 16. INITIAL ASSESSMENT/SAFETY PRECAUTIONS/MEDICAL COMPLICATIONS (Level of function at start of care. Be specific, use objective measures, list problems.) O: APPEARANCE, OBSERVATION AND GAIT: The patient presents as a middle aged male who ambulates with shoes on bilateral feet. Upon removing the shoes and dressings, the patient's right lower extremity wound, on the lateral foot, is measured as 0.7 cm x 0.3 cm x 0.5 cm with 100% yellow slough. The patient additionally has a left lateral foot wound at the styloid of the 5th where he stepped on the nail, which measures 2.0 cm x 2.0 cm. Depth is unable to be determined due to 100% adherent yellow slough that was unable to be fully debrided. The left plantar surface at the 1st met head has a wound present of 1.2 cm x 2.1 cm x 1.0 cm. This would is 100% adherent yellow and black slough/eschar. This is boggy at the distal end with the possibility of further depth as debridement ensues. The patient did have 3+ pitting edema in the left lower leg. The patient additionally has scratches present throughout his body, especially the lower legs due to intense scratching. TODAY'S TREATMENT: Today's treatment consisted of an initial evaluation and debridement with dermal curette and forceps of adherent slough and callous. Bilateral wounds were then dressed with multilayer compression bandaging to manage edema and increase healing. 17. INITIAL POC: (Specify procedures, modalities, short and detention goals) A: The patient presents to physical therapy with diagnosis of bilateral foot wounds with resultant increased infection risk, decreased wound bed quality and a decreased skin integrity. PROGNOSIS: This patient does have a good prognosis with regular therapy attendance and compliance with bandaging and keeping blood sugars under control. This patient is expected to benefit from physical therapy services in order to have increased wound bed quality, decreased wound size for complete resolution of this condition. INFORMED CONSENT: The diagnosis, prognosis, treatment plan, risks and expected outcomes were discussed with the patient and the patient did agree to today's established plan of care. SHORT TERM GOALS: 1. The patient to be compliant with wearing bandaging after each visit. 2. Wound beds to consist of 100% red granulation in 4 weeks to allow wound closure. 3. Wounds to be 50% decreased in size in 8 weeks to reflect increased healing. 4. All wounds to be 100% healed in 12 weeks to have decreased infection risk and be able to self-manage this condition. P: Plan to treat the patient 3 times per week for 12 weeks in order to address bilateral foot wounds. Therapeutic treatments to include comprehensive wound care management, and patient education in home exercise program to be advanced as warranted. 18. FREQUENCY 3 times per week 19. DURATION 12 weeks 20. FUNCTIONAL LEVEL (End of claim period) 21. PHYSICIAN SIGNATURE ? ON FILE OR ENTER HERE: 22. DATE: I certify the need for these services furnished under this plan of care and if for partial hospitalization. 23. CERTIFICATION FROM THROUGH FORM [id number]
== END 2017-03-28 19:32 | disposition home or self-care (01) ==
LOC: PT 09:00
PROVIDERS: ATTEND Family Medicine
DX: E11.621 Type 2 diabetes mellitus with foot ulcer (principal)